=== PATIENT | female | born 1980 | race African-American/Black ===

== ENCOUNTER → 2019-06-26 | Outpatient (CLI) | payer OTHER ==
[2019-05-12 15:13] VITALS: BP 110/73
[~2019-06-26] MED LIST: AMOX1TAB11 PO; GABA300C18 PO; HYDR-2761 PO; IBUP-1060 PO; LEVO500T59 PO; MECL-75 PO; PRED-220 PO
--- NOTE | 2019-06-26 09:25 | RAD ---
MRI of the brain without contrast 06/26/2019 Clinical History: Headaches. History of Cesar's palsy for 2 months. Vertigo. Technique: Unenhanced T1-weighted sagittal and axial, T2-weighted axial and coronal and FLAIR, gradient echo and diffusion-weighted axial images of the brain were obtained. Findings: No previous imaging studies are available for comparison. The ventricles and sulci are within normal limits in size and configuration. Patchy and several small focal areas of increased signal intensity are seen within the periventricular and subcortical white matter of both cerebral hemispheres on the FLAIR and T2-weighted images consistent most likely with areas of minimal small vessel ischemic disease. No acute parenchymal abnormality is seen. No extra-axial fluid collection is seen. There is no MRI evidence of acute ischemia/infarction. The IACs and visualized trigeminal nerves are within normal limits. Mild mucosal thickening in seen scattered throughout the paranasal sinuses. There are minimal mastoid effusions bilaterally. Normal flow voids are seen within the major vascular structures surrounding the brain parenchyma. Impression: No acute parenchymal abnormality is seen. Electronically signed by: Jaspreet Hyatt MD (06/26/2019 9:22 AM) [id number]
== END ==
LOC: MRI 09:29
PROVIDERS: ATTEND Psychiatry & Neurology Neurology with Special Qualifications in Child Neurology
DX: G51.0 Bell's palsy (principal); G43.909 Migraine, unspecified, not intractable, without status migrainosus; D57.1 Sickle-cell disease without crisis; R42 Dizziness and giddiness
CPT/HCPCS: 70551

== ENCOUNTER → 2020-09-01 | Outpatient (CLI) | payer OTHER ==
[2019-05-12 15:13] VITALS: BP 110/73
[2020-09-01 11:35] LABS: BASO # 0.1 x10^3/uL (0.0-0.2); BASO % 1 % (0-3); EOS # 0.7 x10^3/uL (0.0-0.7); EOS % 6 % (0-3); HEMATOCRIT 27.5 % (36.0-47.0); HEMOGLOBIN 10.1 g/dL (12.0-15.5); LYMPH # 4.4 x10^3/uL (1.0-4.8); LYMPH % 38 % (24-48); MEAN CORPUSCULAR HEMOGLOBIN 26 pg (25-35); MEAN CORPUSCULAR HGB CONC 37 g/dL (31-37); MEAN CORPUSCULAR VOLUME 72 fL (79-100); MONO # 0.5 x10^3/uL (0.0-1.1); MONO % 4 % (0-9); NEUT % 52 % (31-73); PLATELET COUNT 366 x10^3/uL (140-400); RED BLOOD COUNT 3.84 x10^6/uL (3.50-5.40); RED CELL DISTRIBUTION WIDTH 21.2 % (11.5-14.5); WHITE BLOOD COUNT 11.7 x10^3/uL (4.0-11.0)
[2020-09-01 11:47] LABS: CALCIUM 7.8 mg/dL (8.5-10.1); CREATININE 0.7 mg/dL (0.6-1.0); GFR 112.7; POTASSIUM 3.1 mmol/L (3.5-5.1)
[2020-09-01 11:54] LABS: ALBUMIN 3.2 g/dL (3.4-5.0); ALBUMIN/GLOBULIN RATIO 0.8 (1.0-1.7); TOTAL BILIRUBIN 1.7 mg/dL (0.2-1.0); TOTAL PROTEIN 7.3 g/dL (6.4-8.2)
[2020-09-01 13:34] LABS: % BASOS 1 % (0-3); % EOS 9 % (0-5); % LYMPHS 34 % (24-48); % MONOS 1 % (0-10); % SEGS 55 % (35-66); NUCLEATED RBC 1
[2020-09-01 13:35] LABS: ANISOCYTOSIS MOD; MICROCYTOSIS MOD; PLT ESTIMATE ADEQUATE (ADEQUATE); POLYCHROMASIA SLIGHT; TARGET CELLS MOD
== END ==
LOC: ONCLAB 10:59
PROVIDERS: ATTEND Internal Medicine Hematology & Oncology
DX: D57.1 Sickle-cell disease without crisis (principal)
CPT/HCPCS: 36415; 80053; 85007; 85025

== ENCOUNTER → 2021-01-11 | Outpatient (CLI) | payer OTHER ==
[2019-05-12 15:13] VITALS: BP 110/73
[2021-01-11 11:24] LABS: BASO # 0.1 x10^3/uL (0.0-0.2); BASO % 1 % (0-3); EOS % 7 % (0-3); HEMATOCRIT 29.8 % (36.0-47.0); LYMPH # 4.6 x10^3/uL (1.0-4.8); LYMPH % 31 % (24-48); MEAN CORPUSCULAR HEMOGLOBIN 24 pg (25-35); MEAN CORPUSCULAR HGB CONC 34 g/dL (31-37); MEAN CORPUSCULAR VOLUME 70 fL (79-100); MONO # 0.8 x10^3/uL (0.0-1.1); MONO % 6 % (0-9); NEUT # 8.4 x10^3/uL (1.8-7.7); NEUT % 56 % (31-73); PLATELET COUNT 410 x10^3/uL (140-400); RED BLOOD COUNT 4.26 x10^6/uL (3.50-5.40); RED CELL DISTRIBUTION WIDTH 21.2 % (11.5-14.5)
[2021-01-11 11:34] LABS: CALCIUM 8.5 mg/dL (8.5-10.1); CREATININE 0.6 mg/dL (0.6-1.0); GFR 134.7; POTASSIUM 3.3 mmol/L (3.5-5.1)
[2021-01-11 11:41] LABS: ALBUMIN 3.5 g/dL (3.4-5.0); ALBUMIN/GLOBULIN RATIO 0.8 (1.0-1.7); TOTAL BILIRUBIN 1.2 mg/dL (0.2-1.0)
[2021-01-11 12:15] LABS: ANISOCYTOSIS MOD; TARGET CELLS MOD
[2021-01-11 12:16] LABS: MICROCYTOSIS PRESENT; POLYCHROMASIA SLIGHT
[2021-01-11 12:17] LABS: PLT ESTIMATE INCREASED (ADEQUATE)
== END ==
LOC: ONCLAB 10:24
PROVIDERS: ATTEND Internal Medicine Hematology & Oncology
DX: D57.1 Sickle-cell disease without crisis (principal)
CPT/HCPCS: 36415; 80053; 83615; 85025

== ENCOUNTER 2021-02-13 10:06 | Emergency (ER) | payer OTHER ==
[~2021-02-13] VITALS: Ht 160 cm; Wt 81.9 kg
--- NOTE | 2021-02-13 11:28 | PHYS DOC ---
Past Medical History Past Medical History: Pneumonia, Sickle Cell Disease, Other Additional Past Medical Histor: HALL'S PALSY Past Surgical History: Smoking Status: Never Smoker Alcohol Use: None General Adult EDM: Chief Complaint: COUGH HPI: HPI: Patient is a 41 year old female with a history of sickle cell who presents to the ED today stating she has pneumonia. Patient states she has had a productive cough for 5 days. Denies any fever. Denies any shortness of breath. She states her daughter tested positive for COVID-19 a week ago. She states she did not receive Covid vaccine. She states her symptoms are not consistent with sickle cell exacerbation. Review of Systems: Review of Systems: Constitutional: Denies fever or chills. [] Eyes: Denies change in visual acuity. [] HENT: Denies nasal congestion or sore throat. [] Respiratory: Reports cough, denies shortness of breath. [] Cardiovascular: Denies chest pain or edema. [] GI: Denies abdominal pain, nausea, vomiting, bloody stools or diarrhea. [] : Denies dysuria. [] Musculoskeletal: Denies back pain or joint pain. [] Integument: Denies rash. [] Neurologic: Denies headache, focal weakness or sensory changes. [] Psychiatric: Denies depression or anxiety. [] Heart Score: C/O Chest Pain: N/A Risk Factors: Risk Factors: DM, Current or recent (<one month) smoker, HTN, HLP, family history of CAD, obesity. Risk Scores: Score 0 - 3: 2.5% MACE over next 6 weeks - Discharge Home Score 4 - 6: 20.3% MACE over next 6 weeks - Admit for Clinical Observation Score 7 - 10: 72.7% MACE over next 6 weeks - Early Invasive Strategies Allergies: Allergies: Allergies Coded Allergies Type Severity Reaction Last Updated Verified No Known Drug Allergies 05/09/19 No Physical Exam: PE: Constitutional: Well developed, well nourished, no acute distress, non-toxic appearance. [] HENT: Normocephalic, atraumatic, bilateral external ears normal, oropharynx moist, no oral exudates, nose normal. [] Eyes: PERRLA, EOMI, conjunctiva normal, no discharge. [] Neck: Normal range of motion, no tenderness, supple, no stridor. [] Cardiovascular:Heart rate regular rhythm, no murmur [] Lungs & Thorax: Bilateral breath sounds clear to auscultation [] Abdomen: Bowel sounds normal, soft, no tenderness, no masses, no pulsatile masses. [] Skin: Warm, dry, no erythema, no rash. [] Back: No tenderness, no CVA tenderness. [] Extremities: No tenderness, no cyanosis, no clubbing, ROM intact, no edema. [] Neurologic: Alert and oriented X 3, normal motor function, normal sensory function, no focal deficits noted. [] Psychologic: Affect normal, judgement normal, mood normal. [] EKG: EKG: [] Radiology/Procedures: Radiology/Procedures: []PROCEDURE: CHEST AP ONLY EXAMINATION: Chest radiograph. VIEWS: 1 COMPARISON: 05/09/2019 INDICATION:41 years, Female, cough. FINDINGS: Normal cardiomediastinal silhouette. Bilateral perihilar and basilar airspace opacities. No pleural effusion or pneumothorax. No acute osseous process. IMPRESSION: Bilateral perihilar and basilar airspace opacities suspicious for multifocal pneumonia. Electronically signed by: Twyla Quigley MD (02/13/2021 12:28 PM) [id number] DICTATED and SIGNED BY: TWYLA QUIGLEY MD DATE: 02/13/21 [id number] 0 Course & Med Decision Making: Course & Med Decision Making Pertinent Labs and Imaging studies reviewed. (See chart for details) This a 41-year-old female patient presented to the ED today complaining of a productive cough, symptoms for 5 days. Patient is concerned she has pneumonia. Vitals on arrival to the ED temperature 98.8, heart rate was initially 99 came down to 82 with no intervention. Blood pressure 136/73 which came down to 115/72. O2 sats 95 to 97% on room air. Positive for COVID-19 Chest x-ray noted for multifocal pneumonia Discharged on doxycycline. Provided return precautions. Follow-up with PCP in 1 to 2 weeks Chirag Disclaimer: Chirag Disclaimer: This electronic medical record was generated, in whole or in part, using a voice recognition dictation system. Departure Departure Impression: Primary Impression: Lab test positive for detection of COVID-19 virus Additional Impression: Bilateral pneumonia Qualified Codes: J18.9 - Pneumonia, unspecified organism Disposition: 01 HOME / SELF CARE / HOMELESS Condition: STABLE Referrals: OFE SEALS DO (PCP) follow up next week Patient Instructions: Pneumonia, Adult, [id number] Additional Instructions: You are positive for COVID-19 as well as Covid pneumonia. We put you on antibiotics, ensure you complete them. Please follow-up with your doctor in 1 to 2 weeks. Come back to the ED at any point symptoms worsen Scripts Albuterol Sulfate (VENTOLIN HFA INHALER) 18 Gm Hfa.aer.ad 2 PUFF INH Q4HRS for FOR ASTHMA, #1 EACH 0 Refills Prov: MARY ALICE FORD APRN 02/13/21 Doxycycline Hyclate (DOXYCYCLINE HYCLATE) 100 Mg Tablet 1 TAB PO BID, #14 TAB Prov: MARY ALICE FORD APRN 02/13/21 MARY ALICE FORD APRN Feb 13, 2021 11:28
[2021-02-13 12:11] LABS: INFLUENZA A PATIENT NEGATIVE (NEGATIVE); INFLUENZA B PATIENT NEGATIVE (NEGATIVE)
--- NOTE | 2021-02-13 12:31 | RAD ---
EXAMINATION: Chest radiograph. VIEWS: 1 COMPARISON: 05/09/2019 INDICATION:41 years, Female, cough. FINDINGS: Normal cardiomediastinal silhouette. Bilateral perihilar and basilar airspace opacities. No pleural e ffusion or pneumothorax. No acute osseous process. IMPRESSION: Bilateral perihilar and basilar airspace opacities suspicious for multifocal pneumonia. Electronically signed by: Hans Quigley MD (02/13/2021 12:28 PM) [id number]
[2021-02-13] MEDS ORDERED: DOXY100T PO (12:49)
[2021-02-13 12:52] VITALS: BP 121/74
[2021-02-13] MEDS ORDERED: VENTOLIN HFA18 GM INH (13:01)
== END 2021-02-13 12:59 | disposition home or self-care (01) ==
LOC: ER 10:06
DX: U07.1 COVID-19 (principal); J18.9 Pneumonia, unspecified organism
CPT/HCPCS: 71045; 81025; 87426; 87804; 99285-25

== ENCOUNTER 2021-02-16 15:36 | Emergency (ER) | payer OTHER ==
[~2021-02-16] VITALS: Ht 160 cm; Wt 81.8 kg
[~2021-02-16 15:36] MED LIST changes: +DOXY100T PO; +VENTOLIN HFA18 GM INH
[2021-02-16 17:40] VITALS: BP 130/86
[2021-02-16] MEDS ORDERED: HYDROcodone/APAP 5/325MG 1 TAB TABLET PO ONE (18:15)
[2021-02-16] MEDS ORDERED: predniSONE 20 MG TABLET PO ONE (18:15)
[2021-02-16] MEDS ORDERED: PRED50TA PO (18:18)
--- NOTE | 2021-02-16 18:19 | PHYS DOC ---
Past Medical History Past Medical History: Pneumonia, Sickle Cell Disease, Other Additional Past Medical Histor: HALL'S PALSY Past Surgical History: Smoking Status: Never Smoker Alcohol Use: None General Adult EDM: Chief Complaint: COUGH HPI: HPI: Patient is a 41 year old female who presents with cough, muscle pain on her back and sides. She was seen here on Sunday and prescribed an antibiotic for pneumonia. Patient states "I was just worried because I have not gotten better yet". Denies shortness of breath,chest pain. Reports taking ibuprofen at home for pain. Afebrile. Hemodynamically stable. Review of Systems: Review of Systems: ROS At least 10 ROS systems have been reviewed and are negative except as documented in the HPI. General: Negative except as outlined in HPI above. Skin: Negative except as outlined in HPI above. HEENT: Negative except as outlined in HPI above. Neck: Negative except as outlined in HPI above. Respiratory: Negative except as outlined in HPI above.. Cardiovascular: Negative except as outlined in HPI above. Abdomen: Negative except as outlined in HPI above. : Negative except as outlined in HPI above. Back/MSK: Negative except as outlined in HPI above. Neuro: Negative except as outlined in HPI above. Psych: Negative except as outlined in HPI above. Heart Score: C/O Chest Pain: No Risk Factors: Risk Factors: DM, Current or recent (<one month) smoker, HTN, HLP, family history of CAD, obesity. Risk Scores: Score 0 - 3: 2.5% MACE over next 6 weeks - Discharge Home Score 4 - 6: 20.3% MACE over next 6 weeks - Admit for Clinical Observation Score 7 - 10: 72.7% MACE over next 6 weeks - Early Invasive Strategies Current Medications: Current Medications Medications (Trade) Dose Ordered Sig/Sid Start Time Stop Time Status Last Admin Dose Admin Acetaminophen/ Hydrocodone Bitart (Lortab 5/325) 1 tab 1X ONCE 02/16/21 18:15 02/16/21 18:16 UNV Prednisone (Prednisone) 60 mg 1X ONCE 02/16/21 18:15 02/16/21 18:16 UNV Allergies: Allergies: Allergies Coded Allergies Type Severity Reaction Last Updated Verified No Known Drug Allergies 05/09/19 No Physical Exam: PE: Constitutional: Well developed, well nourished, no acute distress, non-toxic appearance. [] HENT: Normocephalic, atraumatic, bilateral external ears normal, oropharynx moist, no oral exudates, nose normal. [] Eyes: PERRLA, EOMI, conjunctiva normal, no discharge. [] Neck: Normal range of motion, no tenderness, supple, no stridor. [] Cardiovascular:Heart rate regular rhythm, no murmur [] Lungs & Thorax: Bilateral breath sounds clear to auscultation [] Abdomen: Bowel sounds normal, soft, no tenderness, no masses, no pulsatile masses. [] Skin: Warm, dry, no erythema, no rash. [] Back: Muscle tenderness, no CVA tenderness. [] Extremities: No tenderness, no cyanosis, no clubbing, ROM intact, no edema. [] Neurologic: Alert and oriented X 3, normal motor function, normal sensory function, no focal deficits noted. [] Psychologic: Affect normal, judgement normal, mood normal. [] EKG: EKG: [] Radiology/Procedures: Radiology/Procedures: [] Course & Med Decision Making: Course & Med Decision Making Pertinent Labs and Imaging studies reviewed. (See chart for details) [] 41-year-old female presents to the emergency room for muscle aches and cough after being diagnosed with Covid on Sunday. Patient was placed on antibiotics and given an inhaler at that time. Patient is afebrile and hemodynamically stable. Patient given hydrocodone for pain along with prednisone. Discussed with patient taking [id number] medications help with symptoms along with ibuprofen. Explained to patient it would take time for symptoms to resolve. Discussed return precautions in length. Patient verbalizes she understands discharge instructions. Chirag Disclaimer: Chirag Disclaimer: This electronic medical record was generated, in whole or in part, using a voice recognition dictation system. Departure Departure Impression: Primary Impression: Cough Additional Impression: Lab test positive for detection of COVID-19 virus Disposition: HOME / SELF CARE / HOMELESS Condition: STABLE Referrals: OFE SEALS DO (PCP) Patient Instructions: Cough, Adult, [id number] Additional Instructions: You were seen in the emergency room for cough and muscle soreness. You were diagnosed with Covid on Sunday. You were given 1 hydrocodone while in the ER along with prednisone. I am sending you home with a prescription for prednisone. Please continue taking your antibiotic as directed. Return to the emergency room if you have shortness of breath, chest pain increased and worsening symptoms or concerns. EMERGENCY DEPARTMENT GENERAL DISCHARGE INSTRUCTIONS Thank you for coming to [facility] Emergency Department (ED) today and trusting us with you care. We trust that you had a positive experience in our Emergency Department. If you wish to speak to the department management, you may call the Director at [phone]. YOUR FOLLOW UP INSTRUCTIONS ARE FOLLOWS: 1. Do you have a private Doctor? If you do not have a private doctor, please ask for a resource list of physicians or clinics that may be able to assist you with f ollow up care. 2. The Emergency Physicain has interpreted your x-rays. The X-Ray specialist will also review them. If there is a change in the findings, you will be notified in 48 hours when at all possible. 3. A lab test or culture has been done, your results will be reviewed and you will be notified if you need a change in treatment. ADDITIONAL INSTRUCTIONS AND INFORMATION: 1. Your care today has been supervised by a physician who is specially trained in emergency care. Many problems require more than one evaluation for a complete diagnosis and treatment. We recommend that you schedule your follow up appointment as recommended to ensure complete treatment of you illness or injury. If you are unable to obtain follow up care and continue to have a problem, or if your condition worsens, we recommend that you return to the ED. 2. We are not able to safely determine your condition over the phone nor are we able to give sound medical advice over the phone. For these safety reasons, if you call for medical advice we will ask you to come to the ED for further evaluation. 3. If you have any questions regarding these discharge instructions please call the ED at [phone]. SAFETY INFORMATION: In the interest of safety, wellness, and injury prevention; we encourage you to wear your sealbelt, if you smoke; quite smoking, and we encourage family to use a protect adolfo helmet for bicycling and other sporting events that present an increased risk for head injury. IF YOUR SYMPTOMS WORSEN OR NEW SYMPTOMS DEVELOP, OR YOU HAVE CONCERNS ABOUT YOUR CONDITION; OR IF YOUR CONDITION WORSENS WHILE YOU ARE WAITING FOR YOUR FOLLOW UP APPOINTMENT; EITHER CONTACT YOUR PRIMARY CARE DOCTOR, THE PHYSICIAN WHOSE NAME AND NUMBER YOU WERE GIVEN, OR RETURN TO THE ED IMMEDIATELY. Scripts Prednisone (PREDNISONE) 50 Mg Tablet 1 TAB PO DAILY for cough for 5 Days, #5 TAB 0 Refills Prov: MARIANGEL MOORE APRN 02/16/21 MARIANGEL MOORE APRN Feb 16, 2021 18:19
== END 2021-02-16 18:40 | disposition home or self-care (01) ==
LOC: ER 15:36
DX: U07.1 COVID-19 (principal); R05.9 Cough, unspecified; M79.10 Myalgia, unspecified site; M54.9 Dorsalgia, unspecified
CPT/HCPCS: 99283; J7512

== ENCOUNTER 2021-02-21 18:16 | Emergency (ER) | payer OTHER ==
[~2021-02-21 18:16] MED LIST changes: +PRED50TA PO
== END 2021-02-21 21:31 | disposition left against medical advice (07) ==
LOC: ER 18:16
DX: M25.551 Pain in right hip (principal); M79.604 Pain in right leg; Z53.21 Procedure and treatment not carried out due to patient leaving prior to being seen by health care provider

== ENCOUNTER → 2021-07-12 | Outpatient (CLI) | payer OTHER ==
[2021-07-12 12:02] LABS: BASO # 0.1 x10^3/uL (0.0-0.2); BASO % 1 % (0-3); EOS # 0.6 x10^3/uL (0.0-0.7); EOS % 5 % (0-3); HEMATOCRIT 27.5 % (36.0-47.0); HEMOGLOBIN 9.7 g/dL (12.0-15.5); LYMPH # 6.1 x10^3/uL (1.0-4.8); LYMPH % 52 % (24-48); MEAN CORPUSCULAR HEMOGLOBIN 24 pg (25-35); MEAN CORPUSCULAR HGB CONC 35 g/dL (31-37); MEAN CORPUSCULAR VOLUME 67 fL (79-100); MONO # 0.3 x10^3/uL (0.0-1.1); MONO % 3 % (0-9); NEUT # 4.6 x10^3/uL (1.8-7.7); NEUT % 40 % (31-73); PLATELET COUNT 458 x10^3/uL (140-400); RED CELL DISTRIBUTION WIDTH 21.5 % (11.5-14.5); WHITE BLOOD COUNT 11.8 x10^3/uL (4.0-11.0)
[2021-07-12 12:19] LABS: ALBUMIN 3.2 g/dL (3.4-5.0); ALBUMIN/GLOBULIN RATIO 0.7 (1.0-1.7); CALCIUM 7.9 mg/dL (8.5-10.1); CREATININE 0.7 mg/dL (0.6-1.0); GFR 112.1; TOTAL BILIRUBIN 1.8 mg/dL (0.2-1.0); TOTAL PROTEIN 7.6 g/dL (6.4-8.2)
[2021-07-12 12:26] LABS: POTASSIUM 2.8 mmol/L (3.5-5.1)
[2021-07-12 12:57] LABS: % EOS 7 % (0-5); % LYMPHS 39 % (24-48); % MONOS 5 % (0-10); % SEGS 49 % (35-66)
[2021-07-12 12:58] LABS: ANISOCYTOSIS MOD; HYPOCHROMIA SLIGHT; MICROCYTOSIS PRESENT; PLT ESTIMATE INCREASED (ADEQUATE)
== END ==
LOC: ONCLAB 11:17
PROVIDERS: ATTEND Internal Medicine Hematology & Oncology
DX: D57.1 Sickle-cell disease without crisis (principal)
CPT/HCPCS: 36415; 80053; 85007; 85025